=== PATIENT | female | born 1945 ===

== ENCOUNTER 2023-04-30 09:45 | Inpatient (IN) | payer OTHER ==
[~2023-04-30] VITALS: Ht 149.9 cm; Wt 34.0 kg
[2023-04-30] MEDS ORDERED: SYNTHROID200 MCG PO (12:23)
[2023-04-30] MEDS ORDERED: LEVOTHYROXINE25 MCG PO (13:05)
[2023-05-03] MEDS ORDERED: CEFOXITIN SODIUM 2,000 MG VIAL IV ONE ×3 (10:35→16:50)
[2023-05-03] MEDS ORDERED: CHLORHEXIDINE GLUCONATE 120 ML BOTTLE TOP ONE (12:00)
[2023-05-03] MEDS ORDERED: VISTASEAL DUAL APPICATOR 1 EACH APPL TOP ONE (12:01)
[2023-05-03] MEDS ORDERED: THROMBIN,HU/FIBRINOGEN/CALCIUM 10 ML SYRINGE TOP ONE (12:01)
[2023-05-03] MEDS ORDERED: POVIDONE-IODINE 118 ML BOTT TOP ONE ×2 (12:12→13:45)
[2023-05-03] MEDS ORDERED: RINGERS SOLUTION,LACTATED 1,000 ML IV SCH (13:45)
[2023-05-03] MEDS ORDERED: MORPHINE SULFATE 4 MG/ML VIAL IV PRN (14:00)
[2023-05-03] MEDS ORDERED: SUGAMMADEX SODIUM 200 MG/2 ML VIAL IV ONE ×2 (14:30→14:45)
[2023-05-03] MEDS ORDERED: MELOXICAM15 MG (14:47)
[2023-05-03] MEDS ORDERED: ATORVASTATIN CA10 MG (14:48)
[2023-05-03] MEDS ORDERED: SYNTHROID112 MCG (14:48)
[2023-05-03] MEDS ORDERED: SYNTHROID50 MCG (14:48)
[2023-05-03] MEDS ORDERED: KETOROLAC TROMETHAMINE 15 MG VIAL ONE (16:50)
[2023-05-03] MEDS ORDERED: FAMOTIDINE/PF 20 MG/2 ML VIAL ONE (16:51)
[2023-05-03] MEDS ORDERED: FAMOTIDINE/PF 20 MG/2 ML VIAL IV SCH (17:00)
[2023-05-03] MEDS ORDERED: KETOROLAC TROMETHAMINE 15 MG VIAL IV SCH (17:00)
[2023-05-03] MEDS ORDERED: CEFOXITIN SODIUM 2,000 MG VIAL IV SCH (17:00)
[2023-05-03] MEDS ORDERED: SIMETHICONE 125 MG CAPSULE PO SCH (17:00)
[2023-05-03] MEDS ORDERED: LEVALBUTEROL HCL 0.63 MG/3 ML SOLUTION IH SCH (21:00)
[2023-05-04 05:57] LABS: HEMATOCRIT 33.9 % (36.0-45.00); HEMOGLOBIN 11.3 g/dL (12.0-15.00); MEAN CELL VOLUME 91.2 fL (80.00-100.00); MEAN CORPUSCULAR HEMOGLOBIN 30.3 pg (27.00-32.0); MEAN CORPUSCULAR HGB CONC 33.3 g/dl (32.0-36.0); PLATELET COUNT 173 K/uL (150-450); RED BLOOD COUNT 3.72 M/uL (4.00-6.00); RED CELL DISTRIBUTION WIDTH 13.3 % (11.5-14.5)
[2023-05-04] MEDS ORDERED: LEVOTHYROXINE SODIUM 25 MCG TABLET PO SCH (06:00)
[2023-05-04 06:44] LABS: CALCIUM 8.5 mg/dL (8.5-10.1); CREATININE SERUM 0.87 mg/dL (0.55-1.02); GFR 63.13; POTASSIUM 4.47 mEq/L (3.5-5.1)
[2023-05-04] MEDS ORDERED: ENOXAPARIN SODIUM 30 MG/0.3 ML SYRINGE SUBCUTANEO SCH (09:00)
[2023-05-04] MEDS ORDERED: DOCUSATE SODIUM 100MG CAP PO SCH (09:00)
== END 2023-05-04 14:11 | disposition home or self-care (01) | DRG 741 ==
LOC: SURH 05-03 06:14 → O/R 05-03 06:14 → SURH 05-03 08:45 → SURG 05-03 15:25 → SURH 05-03 15:33 → SURG 05-03 17:27
PROVIDERS: Obstetrics & Gynecology; ADMIT Obstetrics & Gynecology Gynecologic Oncology; ATTEND Obstetrics & Gynecology Gynecologic Oncology
PROC: 0USG4ZZ Reposition Vagina, Percutaneous Endoscopic Approach (ICD-10-PCS; 2023-05-03)
PROC: 0UT94ZZ Resection of Uterus, Percutaneous Endoscopic Approach (ICD-10-PCS; principal; 2023-05-03 08:45)
DX: D06.7 Carcinoma in situ of other parts of cervix (principal); D25.1 Intramural leiomyoma of uterus; D25.0 Submucous leiomyoma of uterus; Z20.822 Contact with and (suspected) exposure to COVID-19